=== PATIENT | female | born 1985 | race Asian ===

== ENCOUNTER 2024-04-18 10:25 | Outpatient (CLI) | payer OTHER | END 2024-04-18 10:27 | disposition home or self-care (01) | LOC: PRENATAL 10:25 | PROVIDERS: ATTEND Obstetrics & Gynecology Maternal & Fetal Medicine | DX: O36.80X0 Pregnancy with inconclusive fetal viability, not applicable or unspecified (principal); O26.899 Other specified pregnancy related conditions, unspecified trimester; O09.529 Supervision of elderly multigravida, unspecified trimester; Z3A.01 Less than 8 weeks gestation of pregnancy ==

== ENCOUNTER 2024-06-13 08:31 | Outpatient (CLI) | payer OTHER | END 2024-06-13 08:32 | disposition home or self-care (01) | LOC: PRENATAL 08:31 | PROVIDERS: ATTEND Obstetrics & Gynecology Maternal & Fetal Medicine | DX: O36.80X0 Pregnancy with inconclusive fetal viability, not applicable or unspecified (principal); Z36.82 Encounter for antenatal screening for nuchal translucency; Z3A.13 13 weeks gestation of pregnancy ==

== ENCOUNTER 2024-06-13 09:44 | Outpatient (CLI) | payer OTHER ==
[2024-06-13 10:31] LABS: HEMATOCRIT 36.6 % (36.0-45.00); HEMOGLOBIN 12.8 g/dL (12.0-15.00); MEAN CELL VOLUME 90.3 fL (80.00-100.00); MEAN CORPUSCULAR HEMOGLOBIN 31.5 pg (27.00-32.0); MEAN CORPUSCULAR HGB CONC 34.9 g/dl (32.0-36.0); PLATELET COUNT 256 K/uL (150-450); RED BLOOD COUNT 4.05 M/uL (4.00-6.00); RED CELL DISTRIBUTION WIDTH 13.9 % (11.5-14.5)
[2024-06-13 11:32] LABS: TSH 2.26 uIU/mL (0.358-3.74)
[2024-06-13 11:41] LABS: URINE APPEARANCE Clear; URINE BILIRRUBIN Negative (NEGATIVE); URINE BLOOD Negative; URINE COLOR Yellow; URINE GLUCOSE Negative (NEGATIVE); URINE KETONE Negative (NEGATIVE); URINE LEUKOCYTE Moderate; URINE NITRATE Negative; URINE PROTEIN Negative (NEGATIVE); URINE UROBILINOGEN 0.2 E.U./dl
[2024-06-13 11:46] LABS: URINE EPITHELIAL CELLS 23.7 uL (0.0-38.8); URINE RBC 4.2 uL (0.0-20.8); URINE WBC 65.3 uL (0.0-23.2)
[2024-06-13 12:01] LABS: URINE CAST 0.29 uL (0.0-1.40)
[2024-06-13 12:22] LABS: RH POSITIVE
[2024-06-13 15:22] LABS: RAPID PLASMA REAGIN NONREACTIVE BY RPR (NONREACTIVE)
[2024-06-14 08:05] LABS: hav igm Negative (Negative); hcv Non Reactive (Non Reactive); hep b c Negative (Negative); hep b s ag Negative (Negative)
[2024-06-14 10:09] LABS: RUBELLA IGG 5.11 index (Immune >0.99)
[2024-06-15 14:04] LABS: RUBELLA IGM <20.0 AU/mL (0.0-19.9)
[2024-06-15 18:04] LABS: VARICELLA ZOSTER VIRUS IGM < 0.91 index (0.00-0.90)
== END 2024-06-13 09:46 | disposition home or self-care (01) ==
LOC: LAB 09:44
PROVIDERS: ATTEND Student in an Organized Health Care Education/Training Program
DX: Z34.01 Encounter for supervision of normal first pregnancy, first trimester (principal)

== ENCOUNTER → 2024-08-02 07:05 | Outpatient (CLI) | payer OTHER | END | disposition home or self-care (01) | LOC: PRENATAL 07:05 | PROVIDERS: ATTEND Obstetrics & Gynecology Maternal & Fetal Medicine | DX: O44.00 Complete placenta previa NOS or without hemorrhage, unspecified trimester (principal); Z14.8 Genetic carrier of other disease; Z3A.20 20 weeks gestation of pregnancy ==

== ENCOUNTER 2024-09-26 14:14 | Outpatient (CLI) | payer OTHER | END 2024-09-26 14:15 | disposition home or self-care (01) | LOC: PRENATAL 14:14 | PROVIDERS: ATTEND Obstetrics & Gynecology Maternal & Fetal Medicine | DX: O26.849 Uterine size-date discrepancy, unspecified trimester (principal); Z14.8 Genetic carrier of other disease; O26.859 Spotting complicating pregnancy, unspecified trimester ==